=== PATIENT | male | born 1960 | race Caucasian/White ===

== ENCOUNTER → 2020-04-25 | Emergency (ER) | payer MEDICARE, MEDICAID ==
[~2020-04-25] VITALS: Ht 177.8 cm; Wt 90.3 kg
[~2020-04-25] MED LIST: ONDA4TAB6 PO
[2020-04-25 17:24] VITALS: BP 94/57
== END | disposition home or self-care (01) ==
LOC: ER 17:21
DX: Z00.8 Encounter for other general examination (principal); R60.0 Localized edema; I10 Essential (primary) hypertension; Z88.8 Allergy status to other drugs, medicaments and biological substances; Z79.899 Other long term (current) drug therapy
CPT/HCPCS: 99283